=== PATIENT | female | born 1995 | race Asian ===

== ENCOUNTER 2018-09-12 10:05 | Emergency (ER) | payer OTHER ==
[~2018-09-12] VITALS: Ht 162.6 cm; Wt 61.2 kg
[2018-09-12 10:31] VITALS: BP 107/56; TEMP 97
== END 2018-09-12 10:38 | disposition home or self-care (01) ==
LOC: ED 10:05
DX: H05.011 Cellulitis of right orbit (principal); H10.89 Other conjunctivitis; B96.89 Other specified bacterial agents as the cause of diseases classified elsewhere
CPT/HCPCS: 99281

== ENCOUNTER 2020-02-16 17:00 | Emergency (ER) | payer OTHER ==
[~2020-02-16] VITALS: Ht 165.1 cm; Wt 65.8 kg
[2020-02-16 18:35] LABS: PLATELET COUNT 287 K/uL (152-353)
[2020-02-16 18:53] LABS: POTASSIUM 3.9 mmol/L (3.6-5.2)
[2020-02-16 20:25] VITALS: BP 117/76; TEMP 98.6
== END 2020-02-16 20:25 | disposition home or self-care (01) ==
LOC: ED 17:00
PROVIDERS: Family Medicine
DX: R09.1 Pleurisy (principal)
CPT/HCPCS: 36415; 80053; 81000; 81025; 85027; 87077; 87086; 87088; 87186; 96365; 96375; 99284; J0696; J1885; Q9963